=== PATIENT | male | born 1980 | race Caucasian/White ===

== ENCOUNTER 2018-07-06 08:42 | Emergency (ER) | payer SELFPAY ==
[~2018-07-06] VITALS: Ht 198.1 cm; Wt 127.3 kg
[2018-07-06 09:02] VITALS: Ht 198.1 cm; Wt 127.3 kg
[2018-07-06] MEDS ORDERED: IBUPROFEN800 MG PO (10:50)
[2018-07-06] MEDS ORDERED: CYCLOBENZAPRINE10 MG PO (10:50)
[2018-07-06] MEDS ORDERED: ACETAMINOPHEN500 M1 PO (10:50)
[2018-07-06 12:16] VITALS: BP 143/82
== END 2018-07-06 12:17 | disposition home or self-care (01) ==
LOC: D.ER 08:42
DX: S16.1XXA Strain of muscle, fascia and tendon at neck level, initial encounter (principal); V43.52XA Car driver injured in collision with other type car in traffic accident, initial encounter; Y93.89 Activity, other specified; Y92.410 Unspecified street and highway as the place of occurrence of the external cause